=== PATIENT | male | born 1950 | race Caucasian/White ===

== ENCOUNTER → 2019-01-22 | Outpatient (CLI) | payer OTHER ==
[~2019-01-22] MED LIST: ACCUNEB 0.0.63 MG/3 INH; ALBUTEROL0.09 MG/A2 INH; ASPIRIN ADULT L81 M1 PO; ATIVAN1 MG PO; Depakote ER500 MG PO; LEVOFLOXACIN500 MG PO; LIPITOR80 MG PO; MEDROL DOSEPAK4 MG PO; PULMICORT0.25 MG/2 INH; SPIRIVA -- 3018 MCG PO; ZYPREXA ZYDIS15 MG PO
== END | disposition home or self-care (01) ==
LOC: RAD 11:37
DX: J98.11 Atelectasis (principal); J90 Pleural effusion, not elsewhere classified; M79.89 Other specified soft tissue disorders; F17.200 Nicotine dependence, unspecified, uncomplicated

== ENCOUNTER → 2019-02-02 | Outpatient (CLI) | payer OTHER | END | disposition home or self-care (01) | LOC: RAD 12:04 | DX: J44.0 Chronic obstructive pulmonary disease with (acute) lower respiratory infection (principal); Z87.891 Personal history of nicotine dependence ==